=== PATIENT | male | born 1980 | race Asian ===

== ENCOUNTER 2016-10-15 08:30 | Emergency (ER) | payer MEDICAID ==
[~2016-10-15] VITALS: Ht 167.6 cm; Wt 65.8 kg
[2016-10-15 09:31] VITALS: BP 131/79
== END 2016-10-15 10:39 | disposition home or self-care (01) ==
LOC: ER 08:30
DX: M54.5 Low back pain (principal); M79.604 Pain in right leg

== ENCOUNTER 2019-08-19 21:14 | Emergency (ER) | payer MEDICAID, OTHER ==
[~2019-08-19] VITALS: Ht 167.6 cm; Wt 65.8 kg
[2019-08-19 22:13] VITALS: BP 101/54
== END 2019-08-20 01:20 | disposition left against medical advice (07) ==
LOC: ER 21:16
DX: M54.9 Dorsalgia, unspecified (principal); Z53.21 Procedure and treatment not carried out due to patient leaving prior to being seen by health care provider